=== PATIENT | female | born 1975 | race Caucasian/White ===

== ENCOUNTER 2019-08-09 09:41 | Emergency (ER) | payer BC ==
[~2019-08-09] VITALS: Ht 165.1 cm; Wt 80.7 kg
[2019-08-09 09:41] VITALS: BP_SYST 123
[2019-08-09] MEDS ORDERED: MORPHINE 4 MG/ML INJ. SYRINGE IVP ONE ×2 (10:00→11:45)
[2019-08-09] MEDS ORDERED: DIPHENHYDRAMINE INJ 50 MG/ML VIAL IVP ONE (10:00)
[2019-08-09] MEDS ORDERED: PROCHLORPERAZINE EDISYLATE 10 MG/2 ML VIAL IVP ONE (10:00)
[2019-08-09 10:49] LABS: BASOPHILS # (AUTO) 0.1 K/uL (0.0-0.2); BASOPHILS % (AUTO) 2.8 % (0.0-2.0); EOSINOPHILS # (AUTO) 0.1 K/uL (0.0-0.4); EOSINOPHILS % (AUTO) 3.4 % (0.0-4.0); HEMATOCRIT 39.5 % (36-48); HEMOGLOBIN 12.9 g/dL (12.0-16.0); LYMPHOCYTES # (AUTO) 0.8 K/uL (1.0-5.5); MEAN CORPUSCULAR HEMOGLOBIN 30 pg (27-31); MEAN CORPUSCULAR HGB CONC 33 % (32-36); MEAN CORPUSCULAR VOLUME 92 fL (79.0-98.0); MONOCYTES # (AUTO) 0.2 K/uL (0.0-1.0); MONOCYTES % (AUTO) 8.4 % (1.7-9.3); NEUTROPHILS # (AUTO) 1.6 K/uL (1.8-7.7); NEUTROPHILS % (AUTO) 55.4 % (40.0-70.0); PLATELET COUNT (AUTO) 279 K/uL (130-430); RED BLOOD CELL COUNT(AUTO) 4.29 MIL/uL (4.2-6.2); WHITE BLOOD COUNT (AUTO) 2.8 K/uL (4.8-10.8)
[2019-08-09 11:05] LABS: CREATININE 0.88 mg/dL (0.55-1.30)
[2019-08-09 11:09] LABS: ALBUMIN 3.8 g/dL (3.4-4.8); TOTAL BILIRUBIN 0.4 mg/dL (0.0-1.0)
[2019-08-09 12:08] VITALS: BP_SYST 123
== END 2019-08-09 12:20 | disposition home or self-care (01) ==
LOC: SED 09:41
DX: G43.901 Migraine, unspecified, not intractable, with status migrainosus (principal); Z88.5 Allergy status to narcotic agent
CPT/HCPCS: 36415; 80053; 85025; 96374; 96375; 96376; 99284; J0780; J1200; J2270

== ENCOUNTER 2021-03-09 11:22 | Emergency (ER) | payer BC ==
[~2021-03-09] VITALS: Ht 162.6 cm; Wt 61.2 kg
[2021-03-09 11:22] VITALS: BP_SYST 132
[2021-03-09] MEDS ORDERED: DIPHENHYDRAMINE INJ 50 MG/ML VIAL IVP ONE (11:45)
[2021-03-09] MEDS ORDERED: NACL 0.9% 1,000 ML IV ONE (11:45)
[2021-03-09] MEDS ORDERED: FAMOTIDINE PF 20 MG/2 ML VIAL IVP ONE (11:45)
[2021-03-09] MEDS ORDERED: methylPREDNISolone SOD SUCC/PF 62.5 MG/ML VIAL IVP ONE (11:45)
[2021-03-09] MEDS ORDERED: PRED20TA PO (13:11)
[2021-03-09] MEDS ORDERED: DIPH25CA83 PO (13:11)
[2021-03-09] MEDS ORDERED: FAMO-132 PO (13:11)
[2021-03-09] MEDS ORDERED: EPIN0.3P3 IM (13:11)
[2021-03-09] MEDS ORDERED: EPINEPHrine 1 MG/ML VIAL SUBCUT ONE (13:30)
[2021-03-09] MEDS ORDERED: EPINEPHrine 1 MG/ML AMP ONE (13:31)
[2021-03-09 13:41] VITALS: BP_SYST 129
== END 2021-03-09 13:38 | disposition home or self-care (01) ==
LOC: SED 11:22
DX: L50.0 Allergic urticaria (principal); Z88.5 Allergy status to narcotic agent
CPT/HCPCS: 96361; 96372; 96374; 96375; 99284; J0171; J1200; J2930; J3490; J7030

== ENCOUNTER 2021-03-10 09:28 | Emergency (ER) | payer BC ==
[~2021-03-10] VITALS: Ht 165.1 cm; Wt 72.6 kg
[~2021-03-10 09:28] MED LIST: DIPH25CA83 PO; EPIN0.3P3 IM; FAMO-132 PO; PRED20TA PO
--- NOTE | 2021-03-10 09:58 | NUR ---
Placed in room 6 . Placed on monitor and storage bin tender, blood pressure machine and pulse oximeter. To gown for exam. Side rails up.
[2021-03-10 10:01] VITALS: BP_SYST 165
--- NOTE | 2021-03-10 10:04 | NUR ---
Pt came into ER with complaint of allergic reaction X2days ago from a bee sting. Pt is AAOX4 speaking full sentences denies SOB or pain. Pt is presenting with warm red skin and itchiness. Pt was seen here yesterday and treated and discharged with medications. Pt reports N/D Xtoday. Vital signs holding resting in gurney attached to monitor breathing even and unlabored.
--- NOTE | 2021-03-10 10:28 | NUR ---
Urine collected and sent to lab.
--- NOTE | 2021-03-10 10:28 | NUR ---
JAELYN Alvarez at bedside examining patient.
[2021-03-10] MEDS ORDERED: EPINEPHrine 1 MG/ML VIAL IM ONE (11:00)
[2021-03-10] MEDS ORDERED: predniSONE 20 MG TABLET PO ONE (11:00)
[2021-03-10] MEDS ORDERED: FAMOTIDINE 20 MG TABLET PO ONE (11:00)
[2021-03-10] MEDS ORDERED: LORATADINE 10 MG TABLET PO ONE (11:00)
[2021-03-10] MEDS ORDERED: HYDROCORTISONE 2.5%, 30 GM TOPICAL CREAM TP PRN (11:00)
[2021-03-10] MEDS ORDERED: EPINEPHrine 1 MG/ML AMP ONE (11:09)
--- NOTE | 2021-03-10 11:38 | NUR ---
Pt resting in [facility] VSS no distress noted at this time.
--- NOTE | 2021-03-10 11:45 | NUR ---
Pt states she feels a lot better and is more comfortable.
[2021-03-10 12:23] VITALS: BP_SYST 117
[2021-03-10] MEDS ORDERED: MAG HYDROX/AL HYDROX/SIMETH 30 ML, LIDOCAINE VISCOUS 2% 15ML (PO) 15 ML, DICYCLOMINE HC... PO ONE ×3 (12:30)
[2021-03-10] MEDS ORDERED: ONDANSETRON 4 MG ODT TAB PO ONE (12:30)
== END 2021-03-10 13:18 | disposition left against medical advice (07) ==
LOC: SED 09:28
DX: T78.40XA Allergy, unspecified, initial encounter (principal); Z88.5 Allergy status to narcotic agent; Z79.899 Other long term (current) drug therapy; X58.XXXA Exposure to other specified factors, initial encounter
CPT/HCPCS: 81025; 96372; 99284; J0171; J2001; J7512; Q0162